=== PATIENT | male | born 1980 | race Caucasian/White ===

== ENCOUNTER 2020-08-09 19:57 | Emergency (ER) | payer OTHER ==
[~2020-08-09] VITALS: Ht 170.2 cm; Wt 80.0 kg
[2020-08-09] MEDS ORDERED: ACETAMINOPHEN 325MG TABLET PO ONE (20:45)
[2020-08-09] MEDS ORDERED: LIDOCAINE HCL/EPINEPHRINE 1%-EPI 1:100,000 10 ML VIAL IJ ONE (20:45)
[2020-08-09] MEDS ORDERED: BACITRACIN ZINC OINT UDPKT TOP ONE (20:45)
[2020-08-09] MEDS ORDERED: LIDOCAINE HCL/EPINEPHRINE 1%-EPI 1:100,000 20 ML VIAL INFIL NR (20:52)
[2020-08-09 23:56] VITALS: BP 126/85
== END 2020-08-09 23:58 | disposition home or self-care (01) ==
LOC: ER 19:57
DX: S01.511A Laceration without foreign body of lip, initial encounter (principal); I10 Essential (primary) hypertension; V49.49XA Driver injured in collision with other motor vehicles in traffic accident, initial encounter; Y93.89 Activity, other specified; Y92.488 Other paved roadways as the place of occurrence of the external cause; E78.00 Pure hypercholesterolemia, unspecified; Z86.59 Personal history of other mental and behavioral disorders
CPT/HCPCS: 70486; 99284; A4217; J3490; Z7610

== ENCOUNTER 2020-08-17 21:50 | Emergency (ER) | payer OTHER ==
[~2020-08-17] VITALS: Ht 175.3 cm; Wt 89.0 kg
[2020-08-17 22:19] VITALS: BP 137/89
== END 2020-08-17 22:45 | disposition home or self-care (01) ==
LOC: ER 21:50
DX: Z48.00 Encounter for change or removal of nonsurgical wound dressing (principal); E78.00 Pure hypercholesterolemia, unspecified; I10 Essential (primary) hypertension
CPT/HCPCS: 99281